=== PATIENT | male | born 1990 | race Caucasian/White ===

== ENCOUNTER 2016-07-07 21:06 | Emergency (ER) | payer OTHER ==
[~2016-07-07] VITALS: Ht 172.7 cm; Wt 58.9 kg
[~2016-07-07 21:06] MED LIST: ADDERALL10 MG PO; AMOXICILLIN500 M1 PO; BENTYL20 MG PO; HYDROCODON-ACE1 EAC7 PO; KEFLEX500 MG PO; LORTAB 5-325 M1 EACH PO; MOTRIN800 MG PO; NAPROSYN500 MG PO; NOHOMEMEDS; NORCO 5/3251 TABLET PO; PROMETHAZINE HC25 M1 PO; TRAZODONE HCL50 MG PO; VALIUM5 MG PO
[2016-07-07 21:29] VITALS: BP 129/78
[2016-07-07 21:54] LABS: HEMATOCRIT 42.2 % (38.0-50.0); MCH 30.9 PG (29.0-34.0); MCHC 35.5 G/DL (30.0-36.0); MEAN PLAT.VOLUME 9.3 uM^3 (9.0-12.4); PLATELET COUNT 232 K/uL (156-360); RBC DIS.WIDTH-CV 12.4 % (11.8-14.6); RBC DIS.WIDTH-SD 38.5 % (39-53); RED BLOOD COUNT 4.85 M/uL (4.00-5.50); WHITE BLOOD COUNT 8.1 K/uL (4.1-10.2)
[2016-07-07 22:15] LABS: CHLORIDE 101 mEq/L (99-109); POTASSIUM 4.3 mEq/L (3.7-5.4); SODIUM 138 mEq/L (136-147)
[2016-07-07 22:17] LABS: GLUCOSE 136 mg/dL (70-99)
[2016-07-07 22:18] LABS: ANION GAP 10 MEQ/L (2-14)
[2016-07-07 22:21] LABS: GFR ESTIMATE (CALCULATED) > 59 mL/min/
[2016-07-07 22:22] LABS: UREA NITROGEN (BUN) 14 mg/dL (9-23)
[2016-07-07 22:23] LABS: TROP-I INTERPRETATION NEGATIVE; TROPONIN-I < 0.01 ng/mL (0.0-0.30)
== END 2016-07-07 23:36 | disposition left against medical advice (07) ==
LOC: EME 21:06
DX: R07.9 Chest pain, unspecified (principal); R42 Dizziness and giddiness; Z53.21 Procedure and treatment not carried out due to patient leaving prior to being seen by health care provider
CPT/HCPCS: 71020; 80048; 84484; 85027; 93005

== ENCOUNTER 2016-12-08 12:36 | Emergency (ER) | payer OTHER ==
[~2016-12-08] VITALS: Ht 172.7 cm; Wt 56.9 kg
[2016-12-08] MEDS ORDERED: NAPROSYN500 MG PO (15:08)
[2016-12-08 15:26] VITALS: BP 111/63
== END 2016-12-08 15:27 | disposition home or self-care (01) ==
LOC: EME 12:36
DX: S20.211A Contusion of right front wall of thorax, initial encounter (principal); Y93.61 Activity, american tackle football; W18.30XA Fall on same level, unspecified, initial encounter
CPT/HCPCS: 71020; 99281; 99284

== ENCOUNTER 2017-02-12 14:55 | Emergency (ER) | payer OTHER ==
[~2017-02-12] VITALS: Ht 172.7 cm; Wt 57.5 kg
[2017-02-12] MEDS ORDERED: FLEXERIL5 MG PO (18:39)
[2017-02-12] MEDS ORDERED: MOTRIN600 MG PO (18:39)
[2017-02-12 18:48] VITALS: BP 96/59
== END 2017-02-12 18:49 | disposition home or self-care (01) ==
LOC: EME 14:55
DX: S16.1XXA Strain of muscle, fascia and tendon at neck level, initial encounter (principal); M25.511 Pain in right shoulder; M25.512 Pain in left shoulder; V49.40XA Driver injured in collision with unspecified motor vehicles in traffic accident, initial encounter; Y92.411 Interstate highway as the place of occurrence of the external cause
CPT/HCPCS: 72040; 72125; 99281; 99283; J1885

== ENCOUNTER 2017-06-23 10:24 | Emergency (ER) | payer OTHER ==
[~2017-06-23] VITALS: Ht 172.7 cm; Wt 59.9 kg
[~2017-06-23 10:24] MED LIST changes: +FLEXERIL5 MG PO; +MOTRIN600 MG PO
[2017-06-23 11:05] LABS: HEMOGLOBIN 14.8 G/DL (12.5-16.6); MCH 31.9 PG (29.0-34.0); MCHC 35.2 G/DL (30.0-36.0); MCV 90.5 FL (86-99); PLATELET COUNT 222 K/uL (156-360); RBC DIS.WIDTH-CV 12.3 % (11.8-14.6); RBC DIS.WIDTH-SD 40.4 % (39-53); RED BLOOD COUNT 4.64 M/uL (4.00-5.50); WHITE BLOOD COUNT 10.1 K/uL (4.1-10.2)
[2017-06-23 11:14] LABS: CHLORIDE 107 mEq/L (99-109); POTASSIUM 4.3 mEq/L (3.7-5.4); SODIUM 142 mEq/L (136-147)
[2017-06-23 11:15] LABS: GLUCOSE 107 mg/dL (70-99)
[2017-06-23 11:19] LABS: CREATININE 0.8 mg/dL (0.6-1.3); GFR ESTIMATE (CALCULATED) > 59 mL/min/ (58.99-99999)
[2017-06-23 11:20] LABS: UREA NITROGEN (BUN) 6 mg/dL (9-23)
[2017-06-23 12:51] VITALS: BP 123/75
== END 2017-06-23 12:51 | disposition home or self-care (01) ==
LOC: EME 10:24
DX: R07.89 Other chest pain (principal); F31.9 Bipolar disorder, unspecified
CPT/HCPCS: 71046; 80048; 85027; 93005; 99281; 99283